=== PATIENT | female | born 1955 | race Caucasian/White ===

== ENCOUNTER 2024-09-19 05:17 | Emergency (ER) | payer MEDICARE ==
[~2024-09-19] VITALS: Ht 157.5 cm; Wt 83.9 kg
[~2024-09-19 05:17] MED LIST: AZIT250 PO; CEPH500 PO; CETI10 PO; CLIN150 PO; FEXO60; HYDACE5 PO; IPRAIS; POTCHL20ER PO; PRED20 PO; PROM25 PO; RXHYDACE PO
[2024-09-19] MEDS ORDERED: Acetaminophen 500 MG Tab PO ONE (06:15)
[2024-09-19] MEDS ORDERED: Methocarbamol 500 MG Tab PO ONE (06:15)
[2024-09-19] MEDS ORDERED: Ketorolac Tromethamine 30mg Vial IV ONE (06:15)
[2024-09-19] MEDS ORDERED: Methyl Salicylate/Menth/Camph 57 GM TUBE TOP ONE (06:15)
[2024-09-19] MEDS ORDERED: Robaxin750 MG PO (08:14)
== END 2024-09-19 08:45 | disposition home or self-care (01) ==
LOC: ER 05:17
DX: S16.1XXA Strain of muscle, fascia and tendon at neck level, initial encounter (principal); I10 Essential (primary) hypertension; E78.00 Pure hypercholesterolemia, unspecified; X58.XXXA Exposure to other specified factors, initial encounter; Z79.899 Other long term (current) drug therapy; Z88.2 Allergy status to sulfonamides
CPT/HCPCS: 93005; 93010; 96374; 99283-25; A9270; J1885